=== PATIENT | male | born 1990 | race Two or more races ===

== ENCOUNTER 2023-07-01 10:29 | Inpatient (IN) | payer OTHER ==
[2023-07-01] MEDS ORDERED: ACETAMINOPHEN 325 MG TABLET (FP) ONE (10:49)
[2023-07-01] MEDS: ACETAMINOPHEN 500 MG TABLET (FP) PO ONE (11:00)
[2023-07-01 13:47] LABS: HEMATOCRIT 47.9 % (35.4-49); HEMOGLOBIN 16.5 G/dL (11.7-16.9); MCH 30.9 pg (25.7-33.7); MCHC 34.4 g/dl (32.0-35.9); MEAN CELL VOLUME 89.7 fl (80-96); MEAN PLT VOLUME 11.2 fl (7.5-11.1); PLATELET COUNT 159.1 10^3/uL (134-434); RBC 5.34 10^6/uL (4.00-5.60); RDW 13.7 % (11.9-15.9); WHITE BLOOD COUNT 7.6 10^3/uL (4.0-10.8)
[2023-07-01 13:57] LABS: ALBUMIN 4.5 g/dl (3.4-5.0); BILIRUBIN,TOTAL 0.4 mg/dl (0.2-1); CALCIUM 9.8 mg/dl (8.5-10.1); CREATININE 1.1 mg/dl (0.6-1.3); TOT PROT 7.6 g/dl (6.4-8.2)
[2023-07-01 14:21] LABS: PLATELET ESTIMATE ADEQUATE
[2023-07-01] MEDS: KETOROLAC TROMETHAMINE 15 MG/ML VIAL IVPUSH ONE (15:53)
[2023-07-01] MEDS ORDERED: ASPIRIN 81 MG CHEWABLE TABLETS ONE (15:54)
[2023-07-01] MEDS: ASPIRIN 81 MG CHEWABLE TABLETS PO ONE (15:55)
[2023-07-02 00:28] VITALS: BMI 26.6
[2023-07-02] MEDS: KETOROLAC TROMETHAMINE 15 MG/ML VIAL IVPUSH ONE (00:56)
[2023-07-02] MEDS ORDERED: ACETAMINOPHEN 1000 MG/100 ML BAG IVPB PRN (05:26)
[2023-07-02 06:42] LABS: BASO % 0.6 % (0-2.0); EOS % 4.3 % (0-4.5); HEMOGLOBIN 15.7 GM/dL (11.7-16.9); LYMPH % 31.1 % (8-40); MCH 30.1 pg (25.7-33.7); MCHC 33.5 g/dl (32.0-35.9); MEAN CELL VOLUME 89.9 fl (80-96); MEAN PLT VOLUME 10.6 fl (7.5-11.1); MONO % 12.4 % (3.8-10.2); NEUT % 51.6 % (42.8-82.8); PLATELET COUNT 166 10^3/uL (134-434); RBC 5.22 M/mm3 (4.00-5.60); RDW 13.1 % (11.9-15.9); WHITE BLOOD COUNT 6.7 K/mm3 (4.0-10.0)
[2023-07-02 06:50] LABS: POTASSIUM 3.7 mmol/L (3.5-5.1)
[2023-07-02 06:56] LABS: CALCIUM 9.3 mg/dL (8.5-10.1)
[2023-07-02 06:57] LABS: ALBUMIN 3.6 g/dl (3.4-5.0); BLOOD UREA NITROGEN 12.3 mg/dL (7-18)
[2023-07-02 07:00] LABS: CREATININE 1.2 mg/dL (0.55-1.3)
[2023-07-02 07:01] LABS: BILIRUBIN,TOTAL 0.4 mg/dL (0.2-1); TOT PROT 7.1 g/dl (6.4-8.2)
[2023-07-02] MEDS: ASPIRIN 81 MG CHEWABLE TABLETS PO SCH (09:52)
[2023-07-02] MEDS: NAPROXEN 500 MG TABLET PO SCH (14:46)
[2023-07-02 14:50] LABS: ERYTHROCYTE SEDIMENTATION RATE 2 mm/hr (0-10)
[2023-07-02] MEDS: MELATONIN 5 MG TABLETS PO PRN (21:36)
[2023-07-03 06:43] VITALS: RESP 18
[2023-07-03 09:02] VITALS: BP 123/74; PULSE 72; TEMP 97.8
== END 2023-07-03 13:28 | disposition home or self-care (01) | DRG 207 ==
LOC: FER 10:29 → J4W 22:20
PROVIDERS: ADMIT Internal Medicine; ATTEND Internal Medicine
DX: I51.4 Myocarditis, unspecified (principal); R07.89 Other chest pain; M54.89 Other dorsalgia; R79.89 Other specified abnormal findings of blood chemistry; R06.02 Shortness of breath
CPT/HCPCS: 0241U-QW; 36415; 71046-TC-FY; 71275-TC; 80053; 80061; 82550; 84443; 84484; 85025; 85027; 85379; 85651; 93005; 93306-TC; 99285-25; Q9967